=== PATIENT | female | born 1950 | race Caucasian/White ===

== ENCOUNTER 2019-05-19 09:09 | Emergency (ER) | payer MEDICARE, MEDICAID ==
[2019-05-19] MEDS ORDERED: Sodium Chloride 0.9% 1,000 ML IV ONE (09:10)
[2019-05-19] MEDS ORDERED: EPINEPHrine 1:10,000 1 MG/10 ML Syringe ONE ×3 (09:17→09:40)
--- NOTE | 2019-05-19 09:49 | CR ---
[id number] RAD/RAD Chest PA or AP 1V EXAM: RAD Chest PA or AP 1V INDICATION: CODE BLUE. COMPARISON: May 19, 2019. DISCUSSION: There is an endotracheal tube with tip approximately 3 cm above the anya in good position. Evaluation of the chest is limited secondary to overlying board. The visualized portions of the lungs are clear. IMPRESSION: Endotracheal tube in good position approximately 3 cm above the anya. Raphael Bacon DO 05/19/19 0948 Thank you for allowing us to participate in the care of your patient.
--- NOTE | 2019-05-19 10:05 | EDM.PDOC ---
ED HPI GENERAL MEDICAL PROBLEM - General Stated Complaint: CODE BLUE Time Seen by Provider: 05/19/19 09:09 Source of Information: Reports: EMS, Care Home Records History Limitations: Reports: Other (cardiac arrest) - History of Present Illness INITIAL COMMENTS - FREE TEXT/NARRATIVE: Pt. was brought to ER via EMS in cardiopulmonary arrest. Pt. is as resident at the [facility]. Pt. was found to be alert at 0700 this AM. Pt. offered no complaints at that time. Pt. was found to be unresponsive and cold to the touch at 0838. CPR was started. EMS was summoned at 0844. Pt. was found to be in asystole. CPR was started and Jarrett device was placed. Pt. remained asystolic during her care with EMS. EMS was unable to achieve IV access. Pt. was transported. Pt. was given 1 mg epinephrine down the endotracheal tube. Pt. has a history of hypertension and hyperlipidemia. 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 She is in the special care unit due to psychosis and previously lived in [place]. She is . She has 2 sisters. I spoke with sister Janay who states that the family is not close with the patient. Pt. previously was a code 2, but according to her care home admit documentation, she is a code 1. Onset: Today ED ROS GENERAL - Review of Systems Review Of Systems: Unable To Obtain ED EXAM, GENERAL - Physical Exam Exam: See Below Exam Limited By: Other (unresponsive) General Appearance: Other (pulseless, apneic, unresponsive) Eye Exam: Bilateral Eye: Other (Pupils fixed and dilated at 4 mm) Throat/Mouth: Normal Inspection, Other (intubated) Head: Atraumatic, Normocephalic Neck: Normal Inspection, Supple, Non-Tender Respiratory/Chest: Lungs Clear (lungs clear and equal bilaterally with BVM ventilation), Other Cardiovascular: Other (No pulse) GI/Abdominal: No Distention (Female) Exam: Deferred Rectal (Female) Exam: Deferred Extremities: Mottled, Pallor, Other (cool to touch) Neurological: Unresponsive Skin Exam: Other (dependent lividity noted) EKG INTERPRETATION Rhythm: Other (asystole) Course - Orders/Labs/Meds Labs: Laboratory Tests 05/19/19 Range/Units 09:21 POC Glucose 216 H (74-106) mg/dL Meds: Medications Discontinued Medications Generic Name Dose Route Start Last Admin Trade Name Lenny PRN Reason Stop Dose Admin Epinephrine HCl Confirm 05/19/19 09:40 Epinephrine 1:10,000 Administered 05/19/19 09:41 Dose 2 mg .ROUTE .STK-MED ONE - Re-Assessments/Exams Free Text/Narrative Re-Assessment/Exam: Pt. was intubated on arrival to ER. placement confirmed with auscultation. Bilateral breath sounds heard bilaterally with no sounds over the epigastrium. ETCO2 was 6. Pt. was in asystole during the entire resuscitation. CPR continued with Jarrett device. IO access was obtained in R tibial plateau. Normal saline was infused wide open. Pt. was given a total of 2 doses of epinephrine. Pt. remained in asystole during her entire resuscitation. There was some dependent lividity noted to lower extremities. Decision was made to discontinue resuscitation. Time of 0922 AM. Departure - Departure Time of Disposition: 10:28 Disposition: 20 Preliminary Cause of *Q: Cardiac Arrest Clinical Impression: Cardiac arrest - Discharge Information - Assessment/Plan Plan: Family was contacted. I spoke with Pt. sister, Janay Sutton, as well as her sister Sammi. Janay is POA according to Care Home. I also spoke with Dr. Dykes who felt that autopsy was not warranted in this situation. Family concurs. Nursing has made contact with tissue donation agencies. Body will be released to [facility].
== END 2019-05-19 09:22 | disposition expired ==
LOC: VM.ED 09:09
DX: I46.9 Cardiac arrest, cause unspecified (principal); I10 Essential (primary) hypertension
CPT/HCPCS: 36680; 71045; 82962; 92950; 96374; 99285; J0171; J7030